=== PATIENT | female | born 1945 | race Caucasian/White ===

== ENCOUNTER → 2016-09-10 17:09 | Outpatient (CLI) | payer MEDICARE, OTHER ==
[2014-01-02 11:38] VITALS: BMI 29.6
[~2016-09-10 17:09] MED LIST: CO Q-10100 MG PO; CYCLOBENZAPRINE10 MG PO; HYDROCODON-ACE1 EAC7 PO; HYDROCODONE-APA1 TAB PO; IMITREX100 MG PO; LEXAPRO5 MG PO; PRILOSEC20 MG PO; PROVENTIL HFA6.7 GM INH; SYNTHROID88 MCG PO; VITAMIN B-121000 MC3 PO; VITAMIN C1000 MG PO; VITAMIN D2000 UNIT PO; ZOCOR40 MG PO
== END | disposition home or self-care (01) ==
LOC: D.MAMMO 15:30
DX: Z12.31 Encounter for screening mammogram for malignant neoplasm of breast (principal)

== ENCOUNTER → 2018-06-15 18:23 | Outpatient (CLI) | payer MEDICARE, OTHER ==
[2014-01-02 11:38] VITALS: BMI 29.6
== END | disposition home or self-care (01) ==
LOC: D.MAMMO 10:15
DX: Z12.31 Encounter for screening mammogram for malignant neoplasm of breast (principal)

== ENCOUNTER 2020-04-30 10:30 | Outpatient (CLI) | payer MEDICARE, OTHER ==
[2014-01-02 11:38] VITALS: BMI 29.6
== END 2020-04-30 11:00 | disposition home or self-care (01) ==
LOC: D.MAMMO 10:30
PROVIDERS: ATTEND Family Medicine
DX: Z12.31 Encounter for screening mammogram for malignant neoplasm of breast (principal)